=== PATIENT | male | born 1940 | race Caucasian/White ===

== ENCOUNTER → 2017-11-23 | Outpatient (CLI) | payer OTHER, BC ==
[~2017-11-23] MED LIST: ALEVE220 M1 PO; AUGMENTIN 875-1 EACH PO; BENADRYL25 MG PO; CENTRUM SILVER1 EAC4 PO; COLACE100 MG PO; EFFEXOR XR37.5 MG PO; LEVOTHYROXIN0.075 MG PO; MAG-AL PLUS SUS30 ML PO; METAMUCIL1 EAC1 PO; SENNA LAX8.6 MG PO; TRAMADOL 50 MG50 MG PO; TYLENOL325 MG PO; ULTRAM 50MG TAB50 MG PO; XALATAN2.5 ML OPHTHALMIC; XARELTO10 MG PO
== END ==
LOC: CAT 06:04
DX: M25.552 Pain in left hip (principal); I70.90 Unspecified atherosclerosis; Z96.642 Presence of left artificial hip joint; Z98.890 Other specified postprocedural states